=== PATIENT | female | born 1960 | race Caucasian/White ===

== ENCOUNTER 2019-12-04 07:55 | Emergency (ER) | payer BC, OTHER ==
[~2019-12-04] VITALS: Ht 167.6 cm; Wt 64.1 kg
--- NOTE | 2019-12-04 08:10 | NUR ---
[facility] FEMALE PT BIB AMBULACE AND REPORTS NEW ONSET CP THAT STARTED YESTERDAY WITH VOMITING, NAUSEA, AND DIARRHEA. PT STATES THAT HER AND HER WERE IN A HOT SPRING IN [place] A COUPLE DAYS AGO, AND THAT THEY BOTH GOT SICK. PT SOBBING UPON ARRIVAL, BUT IS CALM AT THIS TIME AFTER SPEAKING WITH BRIAN HA. EMS GAVE 324 ASPIRIN AND ESTABLISHED PIV ACCESS EN ROUTE. PT ATTACHED TO CARDIAC AND VS MONITORS AND CHANGED INTO GOWN UPON ARRIVAL TO [facility] ED. PT VSS. PT EDUCATED ON ER PROCESS AND POC AND VERBALIZES UNDERSTANDING. CALL LIGHT IS WITHIN REACH OF PT AT THIS TIME. AWAITING NEW ORDERS.
[2019-12-04] MEDS ORDERED: MORPHINE SULFATE 4 MG/ML, 1ML ONE (08:16)
[2019-12-04] MEDS ORDERED: ONDANSETRON 2MG/ML, 2ML ONE (08:16)
[2019-12-04] MEDS ORDERED: FAMOTIDINE 20 MG/2 ML ONE (08:17)
--- NOTE | 2019-12-04 08:24 | NUR ---
PT MEDICATED PER MAR. LAB AT BS AT THIS TIME TO DRAW LABS. PT HAS CALL LIGHT WITHIN REACH.
[2019-12-04] MEDS ORDERED: MORPHINE SULFATE 4 MG/ML, 1ML IVPush PRN (08:30)
[2019-12-04] MEDS ORDERED: SODIUM CHLORIDE FLUSH 10ML SYR IVF ONE (08:30)
[2019-12-04] MEDS ORDERED: ONDANSETRON 2MG/ML, 2ML IVPush ONE (08:30)
[2019-12-04] MEDS ORDERED: SODIUM CHLORIDE 0.9% 1,000ML IVBOLUS ONE (08:30)
[2019-12-04] MEDS ORDERED: FAMOTIDINE 20 MG/2 ML IV ONE (08:30)
[2019-12-04 09:06] LABS: BASOPHILS % (AUTO) 0 % (0-1); EOSINOPHILS % (AUTO) 0 % (1-7); LYMPHOCYTES # (AUTO) 0.45 x10^3/uL (1-3.4); LYMPHOCYTES % (AUTO) 6 % (22-44); MD NO; MEAN CORPUSCULAR HEMOGLOBIN 29.2 pg (27.0-34.8); MEAN CORPUSCULAR HGB CONC 33.2 g/dL (32.4-35.8); MEAN CORPUSCULAR VOLUME 87.9 fL (80-100); MEAN PLATELET VOLUME 9.3 fL (7.4-10.4); MONOCYTES # (AUTO) 0.37 x10^3/uL (0.2-0.8); MONOCYTES % (AUTO) 5 % (2-9); NEUTROPHILS # (AUTO) 7.18 x10^3/uL (1.8-6.8); NEUTROPHILS % (AUTO) 90 % (42-75); PLATELET COUNT 203 x10^3/uL (130-400); RED BLOOD COUNT 4.45 x10^6/uL (3.82-5.3); RED CELL DISTRIBUTION WIDTH 13.3 % (9.6-15.2)
[2019-12-04 09:21] LABS: ALANINE AMINOTRANSFERASE 20 U/L (12-78); ALBUMIN 3.3 g/dL (3.4-5.0); ANION GAP 7 mmol/L (5-15); CALCIUM 8.2 mg/dL (8.5-10.1); CHLORIDE 110 mmol/L (98-107); CREATININE 0.86 mg/dL (0.55-1.02)
[2019-12-04 09:25] LABS: ALKALINE PHOSPHATASE 58 U/L (45-117); BILIRUBIN,TOTAL 0.5 mg/dL (0.2-1.0); TOTAL PROTEIN 6.5 g/dL (6.4-8.2); TROPONIN I < 0.015 ng/mL (0.000-0.045)
[2019-12-04] MEDS ORDERED: MAALOX/HYOSCYAMINE/LIDOCAINE 45 ML BTL PO ONE (09:30)
[2019-12-04] MEDS ORDERED: MAALOX/HYOSCYAMINE/LIDOCAINE 45 ML BTL ONE (10:16)
[2019-12-04 10:32] VITALS: BP 111/76
== END 2019-12-04 10:35 | disposition home or self-care (01) ==
LOC: ED 08:52
DX: R07.89 Other chest pain (principal); Z20.828 Contact with and (suspected) exposure to other viral communicable diseases; K21.9 Gastro-esophageal reflux disease without esophagitis; R11.2 Nausea with vomiting, unspecified; Z88.0 Allergy status to penicillin
CPT/HCPCS: 36415; 71045; 76700; 80053; 83690; 84484; 85025; 87635; 93005; 96361; 96374; 96375; 99285; J2270; J2405; J3490; J7030